=== PATIENT | male | born 1950 | race Caucasian/White ===

== ENCOUNTER → 2021-07-09 | Outpatient (CLI) | payer OTHER ==
--- NOTE | 2021-07-09 16:07 | US ---
EXAMINATION TYPE: US kidneys/renal and bladder DATE OF EXAM: 07/09/2021 COMPARISON: None CLINICAL HISTORY: 70-year-old male N18.9 CHRONIC KIDNEY DISEASE. TECHNIQUE: Multiple sonographic images of the kidneys and bladder are obtained. FINDINGS: Right Kidney: 11.4x5.2x4.9 cm. No hydronephrosis. Left Kidney: 11.6x5.7x5.1 cm. No hydronephrosis. There is a tiny 8 mm cortical cyst in the upper pole . Bladder: wnl Bilateral Jets seen: Yes IMPRESSION: No hydronephrosis. Incidental tiny, benign 8 mm cortical cyst upper pole left kidney.
== END | disposition home or self-care (01) ==
LOC: RADUSWWP 14:32
DX: N18.9 Chronic kidney disease, unspecified (principal)
CPT/HCPCS: 76770

== ENCOUNTER → 2022-06-18 | Outpatient (CLI) | payer OTHER ==
--- NOTE | 2022-06-18 15:31 | US ---
EXAMINATION TYPE: US kidneys/renal and bladder DATE OF EXAM: 06/18/2022 COMPARISON: CT 2011. CLINICAL HISTORY: N28.1 RENAL CYST LT. known cyst EXAM MEASUREMENTS: Right Kidney: 10.3 x 4.1 x 4.8 cm Left Kidney: 11.3 x 4.1 x 4.9 cm Right Kidney: No hydronephrosis or masses seen Left Kidney: 0.9 x 0.8 x 1.0cm Bladder: wnl Bilateral Jets seen: Yes There is no evidence for hydronephrosis at this point in time. No nephrolithiasis is seen. Subcentim eter thin-walled cyst left kidney incidentally noted. The urinary bladder is adequately distended. Bilateral ureteral jets are seen. IMPRESSION: No hydronephrosis seen bilaterally.
== END | disposition home or self-care (01) ==
LOC: RADUSWWP 14:45
PROVIDERS: ATTEND Internal Medicine Nephrology
DX: N28.1 Cyst of kidney, acquired (principal)
CPT/HCPCS: 76770